=== PATIENT | female | born 1980 | race Caucasian/White ===

== ENCOUNTER 2017-01-31 03:03 | Emergency (ER) | payer SELFPAY ==
[~2017-01-31 03:03] MED LIST: ALPRAZOLAM PO; LORTAB 10/500 T1 TAB PO
== END 2017-01-31 05:14 | disposition home or self-care (01) ==
LOC: CED 03:03
DX: K11.21 Acute sialoadenitis (principal); L03.211 Cellulitis of face; Z98.51 Tubal ligation status; F17.200 Nicotine dependence, unspecified, uncomplicated; Z79.899 Other long term (current) drug therapy
CPT/HCPCS: 99283

== ENCOUNTER 2017-02-01 23:57 | Emergency (ER) | payer SELFPAY ==
[~2017-02-01] VITALS: Ht 157.5 cm; Wt 74.8 kg
== END 2017-02-02 04:28 | disposition left against medical advice (07) ==
LOC: CED 23:57
DX: L03.211 Cellulitis of face (principal); L02.02 Furuncle of face; B19.20 Unspecified viral hepatitis C without hepatic coma; F17.200 Nicotine dependence, unspecified, uncomplicated
CPT/HCPCS: 36415; 99282